=== PATIENT | male | born 1955 | race Caucasian/White ===

== ENCOUNTER 2018-04-24 05:30 | Day surgery (SDC) | payer OTHER ==
[2018-04-24 06:34] LABS: ADD MAN DIFF? NO
[2018-04-24 06:38] LABS: WHITE BLOOD COUNT 10.4 10^3/ul (4.8-10.8)
[2018-04-24 06:38] LABS: BASOPHIL # 0.1 10^3/ul (0.0-0.1); BASOPHILS % 0.5 % (0.0-2.0); EOSINOPHILS # 0.7 10^3/ul (0.0-0.5); EOSINOPHILS % 6.8 % (0.0-7.0); HEMATOCRIT 37.6 % (42.0-52.0); HEMOGLOBIN 11.8 g/dl (14.0-18.0); LYMPHOCYTES # 2.6 10^3/ul (0.8-2.9); MEAN CORPUSCULAR HEMOGLOBIN 27.3 pg (29.0-33.0); MEAN CORPUSCULAR HGB CONC 31.4 g/dl (32.0-37.0); MEAN PLATELET VOLUME 10.4 fl (7.4-10.4); MONOCYTES % 9.1 % (0.0-11.0); NEUTROPHIL # 6.1 10^3/ul (1.6-7.5); NEUTROPHILS % 58.3 % (39.0-77.0); PLATELET COUNT 266 10^3/UL (140-415); RED BLOOD COUNT 4.32 10^6/ul (4.70-6.10)
[2018-04-24 06:56] LABS: INR 0.88; PT RATIO 0.9
[2018-04-24 06:57] LABS: PARTIAL THROMBOPLASTIN TIME 28.9 Sec (23.0-35.0)
[2018-04-24 07:10] LABS: ALANINE AMINOTRANSFERASE 36 IU/L (13-69); ALBUMIN 3.3 g/dl (3.3-4.9); ALBUMIN/GLOBULIN RATIO 0.97; ALKALINE PHOSPHATASE 80 IU/L (42-121); ANION GAP 14 (8-16); ASPARTATE AMINO TRANSFERASE 32 IU/L (15-46); BILIRUBIN,INDIRECT 0.6 mg/dl (0-1.1); BILIRUBIN,TOTAL 0.6 mg/dl (0.2-1.3); BLOOD UREA NITROGEN 13 mg/dl (7-20); CALCIUM 9.3 mg/dl (8.4-10.2); CARBON DIOXIDE 25 mmol/L (21-31); CHLORIDE 107 mmol/L (97-110); CREATININE 1.14 mg/dl (0.61-1.24); GLUCOSE 108 mg/dl (70-220); POTASSIUM 4.1 mmol/L (3.5-5.1); SODIUM 142 mmol/L (135-144); TOTAL PROTEIN 6.7 g/dl (6.1-8.1)
[2018-04-24] MEDS ORDERED: DIPHENHYDRAMINE 50 MG INJ (07:17)
[2018-04-24] MEDS ORDERED: HYDROCORTISONE 100 MG INJ (07:18)
[2018-04-24] MEDS ORDERED: MIDAZOLAM 1 MG/ML 2 ML INJ (07:24)
[2018-04-24] MEDS ORDERED: FENTAnyl 50 MCG/ML VIAL (07:24)
[2018-04-24] MEDS ORDERED: IODIXANOL LOCM 100 ML BTL (07:53)
[2018-04-24] MEDS ORDERED: HEPARIN 1000 UNITS/NS (A-LINE) 1,000 ML (07:54)
[2018-04-24] MEDS ORDERED: LIDOCAINE 1% (MDV) 20 ML INJ (07:54)
[2018-04-24] MEDS ORDERED: HEPARIN 1000 UNITS/ML 10 ML INJ (07:54)
[2018-04-24] MEDS ORDERED: IODIXANOL LOCM 50 ML BTL (08:16)
[2018-04-24] MEDS ORDERED: SOD CHLORIDE 0.9% 1,000 ML IV (09:13)
[2018-04-24] MEDS ORDERED: ACETAMINOPHEN 325 MG TAB PO (09:30)
[2018-04-24] MEDS ORDERED: ONDANSETRON 4 MG INJ IV (09:30)
== END 2018-04-24 13:41 | disposition home or self-care (01) ==
LOC: SDS 05:30
DX: I73.9 Peripheral vascular disease, unspecified (principal); E11.9 Type 2 diabetes mellitus without complications; I10 Essential (primary) hypertension; I25.10 Atherosclerotic heart disease of native coronary artery without angina pectoris; E78.5 Hyperlipidemia, unspecified; I25.2 Old myocardial infarction
CPT/HCPCS: 37224; 75630; 75716; 76937; 80053; 82962; 85025; 85610; 85730